=== PATIENT | female | born 1980 | race Caucasian/White ===

== ENCOUNTER 2018-02-14 09:02 | Emergency (ER) | payer OTHER ==
[2018-02-14 09:03] VITALS: BMI 27.8
[2018-02-14] MEDS ORDERED: LIDOCAINE 2% 10ML 20 MG/ML VIAL IJ STA (09:22)
[2018-02-14] MEDS ORDERED: Lidocaine PF 2% (5 ml) Inj (For Cardiac Arrhy) ONE (09:55)
--- NOTE | 2018-02-14 10:54 | ED PDOC ---
Upper Extremity Pain/Injury Time Seen by Provider: 02/14/18 09:31 Chief Complaint (Nursing): Trauma Chief Complaint (Provider): Trauma History Per: Patient History/Exam Limitations: no limitations Onset/Duration Of Symptoms: Hrs (x 1) Current Symptoms Are (Timing): Still Present Additional Complaint(s): 38 year old female with no significant medical history presents to the ED with a laceration to base of left hand, onset 1 hour prior to arrival. Patient was trying to cut meat this morning with a metal knife when she cut hand. Denies numbness or weakness of hand or fingers and other medical complaints. Her last Tetanus shot was 5+ years ago. PMD: none provided Past Medical History Reviewed: Historical Data, Nursing Documentation, Vital Signs Vital Signs: Last Vital Signs Temp 97.8 F 02/14/18 09:04 Pulse 64 02/14/18 09:04 Resp 18 02/14/18 09:04 BP 104/64 02/14/18 09:04 Pulse Ox 99 02/14/18 09:04 - Medical History PMH: No Chronic Diseases Denies: Chronic Kidney Disease - Surgical History Surgical History: - Family History Family History: States: Unknown Family Hx - Home Medications Home Medications: Ambulatory Orders Medication Instructions Recorded Vitamins6 [ 1 PO DAILY 11/30/14 Vitamin] Cephalexin [cephalexin] 500 mg PO BID #10 cap 02/14/18 - Allergies Allergies/Adverse Reactions: Allergies Allergy/AdvReac Type Severity Reaction Status Date / Time aspirin Allergy RASH Verified 02/14/18 09:17 Review of Systems ROS Statement: Except As Marked, All Systems Reviewed And Found Negative Musculoskeletal: Positive for: Hand Pain (left ) Physical Exam - Reviewed Nursing Documentation Reviewed: Yes Vital Signs Reviewed: Yes - Physical Exam Appears: Positive for: Non-toxic, No Acute Distress Head Exam: Positive for: ATRAUMATIC, NORMAL INSPECTION, NORMOCEPHALIC Skin: Positive for: Normal Color, Warm, DRY Eye Exam: Positive for: EOMI, Normal appearance, PERRL Extremity: Positive for: Normal ROM (full sensory and motor functions to hand and fingers), Other (left hand: 4 cm elliptical flap laceration to base of left hypothenar eminence) Neurologic/Psych: Positive for: Alert, Oriented (x 3) - ECG O2 Sat by Pulse Oximetry: 99 (RA) Pulse Ox Interpretation: Normal Medical Decision Making Medical Decision Makin:22 --Wound was repaired with sutures. --Patient declined x-ray and states that there is no possibility of a foreign body in the wound given she used an intact metal knife. --Tetanus is now UTD. 10:44 --Patient is stable and will be discharged. Return precautions and proper wound care instructions provided. Scribe Attestation: Documented by Sudha Hogue, acting as a scribe for Jose Alejandro Elizabeth DO Provider Scribe Attestation: All medical record entries made by the Scribe were at my direction and personally dictated by me. I have reviewed the chart and agree that the record accurately reflects my personal performance of the history, physical exam, medical decision making, and the department course for this patient. I have also personally directed, reviewed, and agree with the discharge instructions and disposition. Procedures - Laceration/Wound Repair Left Hand Wound Length (cm): 4 Wound Explored: no foreign body removed Irrigated w/ Saline (ccs): 250 Wound Repaired With: Sutures Suture Size/Type: 3:0, nylon Number of Sutures: 7 Deep Layer Suture Size/Type: 3:0 Wound Complexity: Intermediate Progress: 4 cm elliptical flap laceration: Small amount of non viable skin removed. 8 ml Lidocaine 2% was used for anesthesia. Wound was irrigated with 250 ccs of sterile saline. 7 interrupted 3-0 nylon sutures applied. Wound care instructed and bacitracin applied. Disposition - Clinical Impression Clinical Impression: Laceration of left hand - Patient ED Disposition Is Patient to be Admitted: No - Disposition Referrals: Sean Hatfield MD [Staff Provider] - Disposition Time: 10:44 Condition: STABLE Additional Instructions: Return to ER for any worse or new symptoms Take antibiotics as directed. Use bacitracin 2x daily for 5 days. Keep wound clean and dry x3 days then warm soapy water 3x daily See your doctor or clinic for suture removal in 7 days. Consulte a casas mdico o clnica o regrese a er para eliminar la sutura en 7 olivia. Volver a er para los sntomas peores o nuevos [place] los antibiticos segn lo indicado. Use bacitracina 2x diariamente kelsey 5 olivia. Mantenga la herida limpia y seca x3 olivia entonces agua jabonosa caliente 3x diariamente Prescriptions: Cephalexin [cephalexin] 500 mg PO BID #10 cap Instructions: Laceration Repair With Stitches (DC) Forms: [facility] (Yakut) Print Language: KOREAN
[2018-02-14] MEDS ORDERED: Tdap Vaccine 0.5 ml Vial (10-64 yrs) IM ONE (11:06)
[2018-02-14 11:19] VITALS: BP 111/66; PULSE 61; RESP 16; TEMP 98; O2SAT 100
== END 2018-02-14 11:27 | disposition home or self-care (01) ==
LOC: H.ER 09:02
DX: S61.412A Laceration without foreign body of left hand, initial encounter (principal); W26.0XXA Contact with knife, initial encounter; Y92.89 Other specified places as the place of occurrence of the external cause